=== PATIENT | male | born 1990 | race Two or more races ===

== ENCOUNTER 2018-11-15 14:39 | Emergency (ER) | payer SELFPAY ==
[~2018-11-15] VITALS: Ht 182.9 cm; Wt 85.3 kg
[2018-11-15 14:44] VITALS: BP 118/89
--- NOTE | 2018-11-15 14:50 | NUR ---
AT BEDSIDE FOR EVAL.
[2018-11-15] MEDS ORDERED: IBUPROFEN 600 MG TABLET PO ONE ×2 (14:57→15:00)
--- NOTE | 2018-11-15 15:10 | NUR ---
LICENSED PROFESSIONAL COUNSELOR AT [facility] FOR XRAY.
--- NOTE | 2018-11-15 15:47 | NUR ---
Patient discharged to home in stable condition. Written and verbal after care instructions given. Patient verbalizes understanding of instruction.
== END 2018-11-15 15:48 | disposition home or self-care (01) ==
LOC: ER 14:41
DX: S20.211A Contusion of right front wall of thorax, initial encounter (principal); Z98.890 Other specified postprocedural states; Z60.2 Problems related to living alone; V49.49XA Driver injured in collision with other motor vehicles in traffic accident, initial encounter; Y93.89 Activity, other specified; Y92.488 Other paved roadways as the place of occurrence of the external cause; Y99.8 Other external cause status
CPT/HCPCS: 71045-TC